=== PATIENT | male | born 1965 | race African-American/Black ===

== ENCOUNTER 2020-03-14 06:38 | Emergency (ER) | payer OTHER ==
[~2020-03-14] VITALS: Ht 182.9 cm; Wt 98.0 kg
[2020-03-14] MEDS ORDERED: KETOROLAC 60MG/2ML VIAL IM ONE (08:30)
[2020-03-14] MEDS ORDERED: TRAMADOL 50MG TABLET PO ONE (08:30)
[2020-03-14] MEDS ORDERED: LIDOCAINE HCL/EPINEPHRINE 1%-EPI 1:100,000 20 ML VIAL INFIL NR (10:15)
[2020-03-14 15:23] VITALS: BP 130/67
== END 2020-03-14 15:33 | disposition home or self-care (01) ==
LOC: ER 06:38 → CANBEDREQ 16:47
DX: S76.112A Strain of left quadriceps muscle, fascia and tendon, initial encounter (principal); S46.012A Strain of muscle(s) and tendon(s) of the rotator cuff of left shoulder, initial encounter; M25.062 Hemarthrosis, left knee; V00.141A Fall from scooter (nonmotorized), initial encounter; Y93.89 Activity, other specified; Y92.89 Other specified places as the place of occurrence of the external cause
CPT/HCPCS: 20610; 73030; 73562; 76881; 96372; 99284; J1885; J3490